=== PATIENT | female | born 1950 | race Caucasian/White ===

== ENCOUNTER → 2018-01-08 09:43 | Outpatient (CLI) | payer MEDICARE, OTHER, SELFPAY ==
--- NOTE | 2018-01-08 09:52 | BI_ITS ---
MAMMOGRAPHY - BILATERAL SCREENING REASON FOR EXAM: Female, 67 years old. Routine annual screening examination. PERTINENT HISTORY: Non-contributory. TECHNIQUE: Digital bilateral breast sesar (3D mammographic acquisition) in the CC and MLO projections. 2-D mediolateral oblique (MLO) and craniocaudad (CC) views of both breasts were obtained. CAD: Full Field Digital Mammography with Computer Added Detection was performed. COMPARISON: Comparison is made with prior study dated January 06, 2017 and August 31, 2015. FINDINGS: Breast Composition: There are scattered areas of fibroglandular density. There are no dominant masses or suspicious calcifications. No other significant abnormalities are identified. There has been no significant change since the prior study. BI/SCREENING MAMM (CAD), BILAT IMPRESSION: Stable bilateral screening mammogram. Yearly follow-up mammogram recommended. (A) ASSESSMENT CATEGORY: BIRADS Category 1: Negative. A letter regarding these results will be sent to the patient by the facility within 30 days. Approximately 10% of breast cancers are not detected by mammography. A normal mammogram should not delay biopsy of a clinically suspicious abnormality. [id number] Electronically Signed: Jeronimo Miller MD at 11:39 EDT Tel [phone], Service support ,
--- NOTE | 2018-01-08 10:09 | BD_ITS ---
STUDY: DUAL ENERGY X-RAY ABSORPTIOMETRY / DXA REASON FOR EXAM: Female, 67 years old. The patient is postmenopausal. Loss of height. TECHNIQUE: Bone Mineral Density (BMD) measurements of lumbar spine and bilateral hips were obtained. COMPARISON: Comparison is made with prior study dated May 14, 2011. FINDINGS: Lumbar Spine (L1-L4): g/cm2 (1.218) / T-score (0.3) / Z-score (1.9) Findings are suggestive of normal bone density with a low fracture risk. Increased thoracic kyphosis. Left Femur Total: g/cm2 (0.874) / T-score (-1.1) / Z-score (0.2) Left Femoral Neck: g/cm2 (0.796) / T-score (-1.7) / Z-score (-0.2) Right Femur Total: g/cm2 (0.893) / T-score (-0.9) / Z-score (0.3) Right Femoral Neck: g/cm2 (0.788) / T-score (-1.8) / Z-score (-0.3) The T-Scores on the most recent prior examination were: Lumbar Spine (L1-L4): There has been worsening of bone density since the previous examination. Left Femur Total: which represents a worsening of 11.1%. Right Femur Total: which represents a worsening of 10.3%. BD/Dexa Bone Density Study IMPRESSION: The patient is considered osteopenic as outlined below according to World Arnold Organization (WHO) criteria with a moderate fracture risk. There has been worsening of bone density since the previous examination. Reference Information: The T-score is the number of standard deviations above or below the standard which is normal for young adults at their peak bone mineral density. The World Health Organization (WHO) interprets the T-scores as follows: Above -1 Normal bone density Between -1 and -2.5 Osteopenia Equal to / or below -2.5 Osteoporosis As a practical clinical guideline, osteopenia may be graded as follows: Mild -1 through -1.5 Moderate -1.6 through -2.0 Severe -2.1 through -2.4 The Z-score is the number of standard deviations above or below age-matched controls. A Z-score of less than -1.5 would be considered abnormal. References: 1. NIH Osteoporosis and Related Bone Diseases http://www.osteo.org 2. International Society for Clinical Densitometry http://www.iscd.org 3. National Osteoporosis Foundation http://www.nof.org Electronically Signed: Jeronimo Miller MD at 15:10 EDT Tel [phone], Service support ,
== END ==
PROVIDERS: Family Provider Preventive Medicine Occupational Medicine; PCP Preventive Medicine Occupational Medicine; Visit Provider Preventive Medicine Occupational Medicine
DX: Z12.31 Encounter for screening mammogram for malignant neoplasm of breast (principal); Z78.0 Asymptomatic menopausal state
CPT/HCPCS: 77063; 77067; 77080

== ENCOUNTER 2018-01-23 23:45 | Emergency (ER) | payer MEDICARE, OTHER, SELFPAY ==
[2018-01-23 23:45] VITALS: BP 204/104; PULSE 84; RESP 15; TEMP 36.7; O2SAT 98; BMI 33.5
--- NOTE | 2018-01-24 | CT_ITS ---
HISTORY: NAUSEA AND VOMITING SINCE FRIDAY,ELEVATED BP TECHNIQUE: Helically acquired images were obtained of the abdomen and pelvis following oral and IV contrast. IV Contrast dosage and agent: 100 cc Isovue-300 contrast Oral contrast: Yes. COMPARISON: None. FINDINGS: GI tract: No bowel obstruction. The appendix is negative. Very little colonic stool, likely related to diarrhea. Numerous diverticula of the sigmoid colon and lower left colon. The distal left colon shows pericolonic edema with soft tissue stranding compatible with low-grade diverticulitis. Separately, the right, transverse, and the majority of the descending colon show a generalized pattern of submucosal edema accompanied by mild engorgement of the pericolonic vasa recti as seen with nonspecific colitis. Adequate flow within the celiac, SMA, and NAIDA and therefore not suggestive of ischemic colitis. Lower thorax: Long segment esophageal dilatation with possible lesion at the GE junction. No pleural effusion. Left atrial enlargement. Cholecystectomy with surgical clips within the gallbladder fossa. No biliary dilatation. The liver, spleen, and pancreas show no CT abnormality. Previous gastric surgery. Bilateral renal excretion of contrast without evidence of hydronephrosis or suspicious renal lesion. Multiple benign-appearing renal cysts bilaterally. Adrenal glands are not enlarged. Abdominal aorta is atherosclerotic and is normal in caliber. No ascites or retroperitoneal lymphadenopathy. CT/Abdomen/Pelvis WITH Contrast IMPRESSION: 1. Lower left colon low-grade diverticulitis. 2. Separately, the colon shows nonspecific long segment colitis and pseudomembranous colitis and enterocolitis would be included in differential. 3. Long segment esophageal dilatation with possible lesion at the GE junction. Upper endoscopy should be considered. 4. Atherosclerotic calcifications and additional chronic changes, as above. Individualized dose optimization techniques were used for this CT. at 0323 Reported and signed by: Sander Bustos MD Electronically Signed: Sander Bustos, at 3:21 EDT Tel , Service support ,
--- NOTE | 2018-01-24 | EKG12_ITS ---
Test Reason : NAUSEA VOMITING Blood Pressure : / mmHG Vent. Rate : 081 BPM Atrial Rate : 081 BPM P-R Int : 192 ms QRS Dur : 086 ms QT Int : 388 ms P-R-T Axes : 029 -14 029 degrees QTc Int : 450 ms Sinus rhythm with occasional Premature ventricular complexes Otherwise normal ECG Confirmed by EDUARDO SKINNER, BRENDA ([id number]), publishing editor KENDY ALONSO ([id number]) on 01/26/2018 3:20:13 PM Referred By: RAMON Confirmed By:BRENDA CLARK MD
--- NOTE | 2018-01-24 00:04 | ED.VISSUMM ---
- ER Visit Summary Date of Service: 01/24/18 Chief Complaint: Nausea, vomiting History of Present Illness: The patient is a 67 F presenting with nausea, vomiting. Patient states this started on Friday. She states she has had 4-5 episodes of vomiting per day. She denies diarrhea or constipation. Denies urinary complaints. She states she has abdominal pain only when vomiting. She has had a decreased appetite. She states she is unable to keep fluids down. She denies blood in her stool or emesis. Denies sick contacts. Denies possible bad food exposure. She has a history of stomach stapling surgery 32 years ago. Denies fever or other complaints. Physical Examination: Vitals are stable. Patient is afebrile. Alert no acute distress. HEENT exam dry mucous membranes Neck is supple. Lungs are clear and equal bilaterally. Heart is regular rate and rhythm. Abdomen is soft epigastric tenderness with no rebound or guarding Extremities are unremarkable. Skin is warm and dry. Remainder of exam is unremarkable. Emergency Department Course and Treatment: Patient given IV fluids, Zofran. Labs and CT abdomen are pending at this time. Patient was checked out to the oncoming physician. Disposition pending results Disposition: Pending Impression: Nausea and vomiting This note was generated with [employer] dictation software. It may contain incorrect words, spelling, and punctuation that were not noted in review of the chart prior to signing ED Disposition - Plan for ED Patient: Chief Complaint: Nausea/Vomiting Referrals: Bg Zavala DO [Primary Care Provider] -
[2018-01-24] MEDS: 0.9% Normal Saline 1,000 ML 1000 ML IV (00:34)
[2018-01-24] MEDS: Ondansetron 4 MG/2 ML Vial IV ×2 (00:34→02:03)
[2018-01-24 00:50] LABS: Absolute Lymphocyte Count 1.93 X10^3/ul (0.83-4.51); Absolute Neutrophil Count 7.3 X10^3/uL (2.0-7.7); Basophil# 0.03 X10^3/uL; Basophil% 0.3 % (0-1); Eosinophil# 0.09 X10^3/uL; Eosinophils% 0.9 % (0-5); Hemoglobin 9.4 g/dl (12.0-15.0); Lymphocyte # 1.93 X10^3/ul (4.0); Lymphocyte % 19.1 % (19-41); Mean Corp Hgb Conc 32.4 g/gl (32-36); Mean Corpuscular Hgb 26.6 pg (27.0-32.0); Mean Corpuscular Volume 82.2 fL (81-99); Mean Platelet Vol. 8.4 fl (6.2-12.0); Monocyte# 0.72 X10^3/uL; Monocyte% 7.1 % (0-10); Neutrophil # 7.28 X10^3/uL (2.7-7.7); Neutrophil % 72.3 % (47-70); POSITIVE COUNT NO; POSITIVE DIFFERENTIAL NO; POSITIVE MORPHOLOGY NO; Platelet Count 615 K/mm3 (150-450); RBC Distribution Width CV 12.9 % (11.6-14.6); RBC Distribution Width SD 37.1 fl (35.1-43.9); Red Blood Count 3.53 M/mm3 (4.2-5.4); White Blood Count 10.1 K/mm3 (4.4-11.0)
[2018-01-24 01:00] LABS: ALB/GLOB Ratio 0.8 RATIO (0.9-2.4); AST(SGOT) 11 U/L (15-37); Alanine Aminotransfer ALT/SGPT 16 U/L (13-56); Albumin, Serum 3.5 g/dL (3.2-5.0); Alkaline Phosphatase 69 U/L (45-117); Anion Gap 7 (5-15); BUN 18 mg/dL (7-18); Calcium,Total 9.5 mg/dL (8.5-10.1); Chloride 107 mmol/L (98-107); Creatinine, Serum 1.38 mg/dL (0.55-1.02); EST Glomerular Filtration Rate 41 mL/min (>60); Est Glom Filt Rate - Afr Amer 49 mL/min (>60); Globulin 4.4 g/dL (2.2-4.2); Glucose 135 mg/dL (74-106); Lipase 260 U/L (73-393); Potassium 3.8 mmol/L (3.5-5.1); Protein, Total 7.9 g/dL (6.4-8.2); Sodium Level 139 mmol/L (136-145)
[2018-01-24 01:45] VITALS: BP 222/87; PULSE 85; RESP 15; O2SAT 95
[2018-01-24] MEDS: Acetaminophen 500 MG Tablet 1000 MG PO (02:48)
[2018-01-24 02:49] LABS: Bacteria 0 SEEN /hpf (None Seen); Color, Urine Yellow (Yellow); Glucose, Dipstick Normal (Normal); Ketone-Dipstick Negative (Negative); Leukocyte Esterase-Dipstick 25 /ul (Negative); Mucous, Urine 0 SEEN /hpf (<or=2+); Nitrite-Dipstick Negative (Negative); Occult Blood-Urine Negative /ul (Negative); Protein-Dipstick 30 mg/dl (Negative); Red Blood Cells-Urine 0 SEEN /hpf (0-5); Squamous Epithelial Cells - UA 0 SEEN /hpf (5-10); Urine Bilirubin Dipstick Negative (Negative); Urine Clarity Clear (Clear); Urine Urobilinogen Normal (Normal)
[2018-01-24 02:50] VITALS: BP 186/70; PULSE 83; RESP 15; O2SAT 96
[2018-01-24 02:56] LABS: White Blood Cells 0-5 SEEN /hpf (0-5)
[2018-01-24 03:47] VITALS: BP 182/59; PULSE 87; RESP 15; O2SAT 95
--- NOTE | 2018-01-24 03:56 | ED.DEP ---
ED Disposition - Plan for ED Patient: Disposition: Home or Assisted Living Chief Complaint: Nausea/Vomiting Instructions: ED Diverticulitis Prescriptions: proMETHazine tablet [Phenergan] 25 mg PO Q6H PRN PRN #10 tablet PRN Reason: Nausea Ondansetron [Zofran Odt] 4 mg PO Q8H PRN PRN #10 tablet PRN Reason: Nausea Amox/Clavulanate Tablet [Augmentin Tablet] 875 mg PO Q12H #20 tablet Referrals: Bg Zavala DO [Primary Care Provider] - 5-7 Days
[2018-01-24] MEDS: proMETHazine 25 MG/ML Syringe 12.5 MG IV (04:01)
[2018-01-24] MEDS: Amox/Clavulanate 875 MG Tablet PO (04:01)
[2018-01-24 04:02] VITALS: BP 186/69; PULSE 78; RESP 15; O2SAT 98
[2018-01-24] MEDS: proMETHazine 25 MG Tablet PO (04:15)
[2018-01-24] MEDS: Ondansetron ODT 4 MG Tablet PO (04:16)
== END 2018-01-24 04:19 | disposition home or self-care (01) ==
PROVIDERS: Emergency Provider Emergency Medicine; Family Provider Preventive Medicine Occupational Medicine; PCP Preventive Medicine Occupational Medicine
DX: R11.2 Nausea with vomiting, unspecified (principal); R10.9 Unspecified abdominal pain; K57.92 Diverticulitis of intestine, part unspecified, without perforation or abscess without bleeding; K52.9 Noninfective gastroenteritis and colitis, unspecified; I49.3 Ventricular premature depolarization; E11.9 Type 2 diabetes mellitus without complications; I10 Essential (primary) hypertension; Z79.84 Long term (current) use of oral hypoglycemic drugs; Z79.899 Other long term (current) drug therapy; Z86.2 Personal history of diseases of the blood and blood-forming organs and certain disorders involving the immune mechanism; Z98.84 Bariatric surgery status
CPT/HCPCS: 74177; 80053; 81001; 83690; 84484; 85025; 93005; 96361; 96374; 96375; 96376; 99284; J7030; Q9967; A4216; J2405

== ENCOUNTER 2018-02-09 15:49 | Emergency (ER) | payer MEDICARE, OTHER, SELFPAY ==
[2018-02-09 15:51] VITALS: BP 141/77; PULSE 92; RESP 15; TEMP 36.3; O2SAT 98; BMI 34.2
--- NOTE | 2018-02-09 16:05 | RAD_ITS ---
STUDY: X-RAY - ABDOMEN/PELVIS REASON FOR EXAM: Female, 67 years old. Constipation for 3 days. History of diverticulitis. TECHNIQUE: KUB COMPARISON: CT abdomen and pelvis 01/24/2018 FINDINGS: Scattered gas in the small and large bowel, nondilated. Moderate stool burden of large bowel. No evidence of constipation. No evidence of free air. Grossly normal size and position of the solid organs of the abdomen. Cholecystectomy. Postsurgical changes of the stomach. Postsurgical changes adjacent to the spleen. Lung bases grossly clear in limited evaluation. Minimal low lumbar spondylosis. Minimal degenerative changes of the hip joints. Next line slight scoliosis. RAD/Abdomen Single View IMPRESSION: Unremarkable bowel pattern. No acute intra-abdominal process is evident. Electronically Signed: Daren Ba, at 16:26 EST Tel , Service support ,
--- NOTE | 2018-02-09 16:39 | ED.VISSUMM ---
- ER Visit Summary Date of Service: 02/09/18 Chief Complaint: Constipation History of Present Illness: The patient is a 67 F who was recently treated for diverticulitis. She states she is done with antibiotics. She resumed her usual stool softeners and last night and today took an extra dose. She states she has not had a good bowel movement for 3 days. She feels a lot of lower abdominal pressure. She states that she is having some leakage of watery diarrhea. No fevers. Physical Examination: Afebrile vital signs stable Gen: Well-nourished well-developed Head: Normocephalic atraumatic Eyes: Perrl EOMI ENT: TMs clear no rhinorrhea moist mucous membranes Neck: Supple no lymphadenopathy no JVD nontender CVS: Regular rate rhythm no murmurs normal S1-S2 Respiratory: No distress clear to auscultation bilaterally chest nontender Abdomen: Soft nontender nondistended normal bowel sounds no masses Rectal: Soft stool inflamed hemorrhoidal tissue Back: Nontender Extremity: Nontender no edema Skin: Normal color no rash Neuro: alert orientated ?3 CN II-XII intact normal strength sensation reflexes gait cerebellar Psych: Normal affect normal mood Test Results: Large amount of stool in the rectosigmoid region is seen on abdominal x-ray. Emergency Department Course and Treatment: Patient given soapsuds enema. This resulted in large stool. Patient feels better. She will be discharged home. Impression: 1. Constipation 2. Fecal impaction resolved This note was generated with [employer] dictation software. It may contain incorrect words, spelling, and punctuation that were not noted in review of the chart prior to signing ED Disposition - Plan for ED Patient: Disposition: Home or Assisted Living Chief Complaint: Constipation Instructions: ED Constipation, ED Impaction Fecal Treated Referrals: Bg Zavala DO [Primary Care Provider] - As Needed
[2018-02-09 17:59] VITALS: BP 153/70; PULSE 77; RESP 18; O2SAT 100
== END 2018-02-09 18:02 | disposition home or self-care (01) ==
PROVIDERS: Emergency Provider Emergency Medicine; Family Provider Preventive Medicine Occupational Medicine; PCP Preventive Medicine Occupational Medicine
DX: K59.00 Constipation, unspecified (principal); R19.7 Diarrhea, unspecified; E11.9 Type 2 diabetes mellitus without complications; I10 Essential (primary) hypertension; Z79.84 Long term (current) use of oral hypoglycemic drugs; Z79.899 Other long term (current) drug therapy; Z87.19 Personal history of other diseases of the digestive system
CPT/HCPCS: 74018; 99284

== ENCOUNTER 2018-10-20 15:14 | Emergency (ER) | payer MEDICARE, OTHER, SELFPAY ==
[2018-10-20 15:15] VITALS: BP 162/96; PULSE 100; RESP 17; TEMP 37.3; O2SAT 100; BMI 34.9
--- NOTE | 2018-10-20 15:26 | ED.VIS.GEN ---
History of Present Illness Chief Complaint: Abd Pain Informant: Patient Onset: Days - October 18 Context: Sudden Onset Timing: Intermittent Quality: Nausea, vomiting and diarrhea Location: Also upper abdominal pain Current Severity: Mild Maximum Severity: Moderate Worsened by: Vomiting and diarrhea Relieved by: Nothing, patient took Phenergan with no improvement Associated Symptoms: Orthostatic symptoms, thirst and dry mouth Narrative: Patient is a 68-year-old woman with type 2 diabetes and hypertension who presents with upper abdominal pain with nausea, vomiting diarrhea. She reports vomiting 3 times on Friday and Friday. She is only vomited once today. She states she is had numerous loose watery stools since onset Friday. She denies blood or mucus. She denies history of inflammatory bowel disorder. She does have history of diverticulosis/diverticulitis. She denies dysuria, frequency, urgency or hematuria. She does report chills without fever. She has taken her temperature at home when she had chills and her temperature was not elevated. She does not have nasal drainage. She denies headache. She denies ocular, visual or auditory symptoms. She denies ear pain. She denies cough, shortness of breath or difficulty breathing. Prior similar symptoms: No Recent Illness/Hospitalization: No - Past Medical History (1) History of type 2 diabetes mellitus Status: Acute (2) History of hypertension Status: Acute Past Medical History - Allergies and Home Meds Allergies/Adverse Reactions: Allergies nitrofurantoin macrocrystalline [From Macrodantin] Allergy (Verified 10/20/18 15:14) Unknown Primary Care Physician: Bg Zavala DO [Primary Care Provider] - Surgical History: cholecystectomy, - - section Lives: Alone Smoking Status: Never smoker Alcohol: None Drugs: None Review of Systems General: Reports: Chills. Denies: Fever, Malaise, Subjective, Sweats, Weight loss, - Eyes: Denies: Visual changes - bilaterally, Blurred Vision - bilaterally ENT: Reports: - - Positive postnasal drainage. Denies: Bilateral ear pain, Rhinorrhea, Sore throat Cardiovascular: Denies: Chest pain, Palpitations Respiratory: Denies: Dyspnea, Cough, Dyspnea on exertion Gastrointestinal: Reports: Abdominal pain, Nausea, Vomiting, Diarrhea. Denies: Constipation, Melena, Hematochezia Genitourinary: Denies: Dysuria, Hematuria, Frequency Musculoskeletal: Denies: Myalgias, Arthralgias, Neck pain, Back pain, Swelling, Extremity Pain, -, - Skin: Denies: Rash, Wounds Neurological: Reports: Weakness. Denies: Headache, Numbness Hematologic: Denies: Easy bruising, Easy bleeding Allergy: Denies: Uticaria, Swelling of the mouth Physical Exam Vital Signs/Narrative: Vital Signs Temp Pulse Resp BP Pulse Ox 10/20/18 15:15 99.1 F 100 17 162/96 H 100 General: Well nourished, Well developed, No Acute Distress Head: Normocephalic, Atraumatic Eyes: Perrl, EOMI. Negative for: Pale conjunctiva, Scleral icterus ENT: No rhinorrhea, TM's clear - Evidence of scarring consistent with multiple ear infections as child, Dry mucous membranes. Negative for: Nasal congestion, Sinus tenderness Neck: Supple, Nontender, No lymphadenopathy, No JVD, - Cardiovascular: Regular rate, Regular rhythm, No murmurs Respiratory: No distress, CTA bilaterally, Chest nontender Abdomen: Soft, Nontender, Nondistended, Normal bowel sounds, No masses Back: Nontender, Normal Inspection Extremities: Nontender, No edema Skin: Normal color, No rash. Negative for: Cyanosis, Diaphoresis, Jaundice, No Trauma Neurological: Alert, Oriented x3, Cranial nerves II-XII grossly intact, Normal Strength, Normal Sensation, Normal Gait Psychological: Normal affect, Normal Mood Diagnostic/Tx/Re-eval Laboratory Results 10/20/18 15:40 Sodium 141 Potassium 3.9 Chloride 108 H Carbon Dioxide 24.0 Anion Gap 9 BUN 24 H Creatinine 2.04 H Estim Creat Clear Calc 19.22 Est GFR (MDRD) Af Amer 31 L Est GFR (MDRD) Non-Af 26 L BUN/Creatinine Ratio 11.8 Glucose 102 Calcium 9.8 Creatinine January 2018 was 1.38. - Medical Decision Making Clinically patient is dehydrated. Will treat nausea and vomiting with Zofran. Will then order Bentyl and Imodium for her pain and diarrhea. Since she has history of diabetes and hypertension we will obtain basic medical panel to assess renal function, electrolytes specifically potassium. Suspect this is viral. I was informed at 1630 the patient would not take the Bentyl Imodium ordered because she still feels nauseated even though she has not vomited 4 hours. 5 mg of Reglan was ordered. She did receive Tylenol for headache. I was informed by nurse that she is having a burning sensation. She was treated with IV Pepcid. She was reassessed at 1900. She states she is now feeling better. She sitting up smiling talking with family members. She was informed that I did speak with Dr. Sharma on-call for Dr. Murcia. She is to call office to be seen on Friday for reevaluation and blood work. ED Disposition - Plan for ED Patient: Disposition: Home or Assisted Living Diagnosis: Abdominal pain, vomiting, and diarrhea, Acute kidney injury superimposed on chronic kidney disease Instructions: VOMITING AND DIARRHEA, Nonspecific (Adult) Prescriptions: Dicyclomine HCl [Bentyl] 20 mg PO TIDAC #10 cap Transmission Status: Pending to [facility] Metoclopramide [Reglan] 10 mg PO 4X/DAY PRN #10 tab PRN Reason: Headache Transmission Status: Pending to [facility] Referrals: Bg Zavala DO [Primary Care Provider] - 10/23/18 Additional Instructions: Your prescription was electronically transmitted to [facility]. If you have vomiting more than once a day or if your diarrhea does not resolve with Imodium return to the emergency department. Otherwise, see Dr. Murcia on Friday for reevaluation and blood work
[2018-10-20] MEDS: 0.9% Normal Saline 1,000 ML 1000 ML IV (15:39)
[2018-10-20] MEDS: Ondansetron 4 MG/2 ML Vial IV (15:39)
[2018-10-20 16:21] LABS: Anion Gap 9 (5-15); BUN 24 mg/dL (7-18); BUN/Creat Ratio 11.8 RATIO (10-20); Calcium,Total 9.8 mg/dL (8.5-10.1); Chloride 108 mmol/L (98-107); Creatinine, Serum 2.04 mg/dL (0.55-1.02); EST Glomerular Filtration Rate 26 mL/min (>60); Est Glom Filt Rate - Afr Amer 31 mL/min (>60); Estimated Creatinine Clearance 19.22 ml/min; Glucose 102 mg/dL (74-106); Potassium 3.9 mmol/L (3.5-5.1); Sodium Level 141 mmol/L (136-145)
[2018-10-20] MEDS: Metoclopramide 10 MG/2 ML Vial 5 MG IV (16:47)
[2018-10-20] MEDS: Loperamide 2 MG Capsule 4 MG PO (17:09)
[2018-10-20] MEDS: Dicyclomine 10 MG Capsule 20 MG PO (17:09)
[2018-10-20 17:35] VITALS: BP 186/89; PULSE 87; RESP 16; O2SAT 97
[2018-10-20] MEDS: Acetaminophen 325 MG Tablet 650 MG PO (18:28)
[2018-10-20 19:04] VITALS: BP 177/82; PULSE 87; RESP 16; O2SAT 99
[2018-10-20 19:32] VITALS: BP 160/76; PULSE 86; RESP 18; O2SAT 98
== END 2018-10-20 19:32 | disposition home or self-care (01) ==
PROVIDERS: Emergency Provider Emergency Medicine; Family Provider Preventive Medicine Occupational Medicine; PCP Preventive Medicine Occupational Medicine
DX: R10.10 Upper abdominal pain, unspecified (principal); R19.7 Diarrhea, unspecified; R11.2 Nausea with vomiting, unspecified; E86.0 Dehydration; N17.9 Acute kidney failure, unspecified; I12.9 Hypertensive chronic kidney disease with stage 1 through stage 4 chronic kidney disease, or unspecified chronic kidney disease; N18.9 Chronic kidney disease, unspecified; E11.9 Type 2 diabetes mellitus without complications; Z79.84 Long term (current) use of oral hypoglycemic drugs; Z79.899 Other long term (current) drug therapy; Z87.19 Personal history of other diseases of the digestive system; Z90.49 Acquired absence of other specified parts of digestive tract
CPT/HCPCS: 80048; 96361; 96374; 96375; 99284; J7030; J2405; J3490

== ENCOUNTER → 2019-01-26 15:20 | Outpatient (CLI) | payer MEDICARE, OTHER, SELFPAY ==
--- NOTE | 2019-01-26 15:24 | US_ITS ---
STUDY: RENAL ULTRASOUND - COMPLETE REASON FOR EXAM: Female, 68 years old. Chronic renal disease TECHNIQUE: Ultrasound evaluation of the kidneys was performed with real-time and static schwartz-scale imaging. COMPARISON: None. FINDINGS: RIGHT KIDNEY: Normal location of the right kidney, which is normal in size. The right kidney measures 10.2 x 5.3 x 4.7 cm. There is a thin cortex of the right kidney. The renal cortex measures 0.8 cm. There is no right renal mass or cyst. There are no right renal calculi. There is no right hydronephrosis. DISTAL RIGHT URETER: There is non-visualization of the distal right ureter. There is no demonstrated right ureterovesical junction calculus. There is a visualized right ureteral jet. LEFT KIDNEY: Normal location of the left kidney, which is normal in size. The left kidney measures 9.7 x 4.9 x 4.6 cm. There is a thin cortex of the left kidney. The renal cortex measures 0.7 cm. There are multiple cysts the largest measuring 2.2 x 2.6 x 1.9 cm.. There are no left renal calculi. There is no left hydronephrosis. DISTAL LEFT URETER: There is non-visualization of the distal left ureter. There is no demonstrated left ureterovesical junction calculus. There is a visualized left ureteral jet. Diffusely increased cortical echoes consistent with nonspecific renal parenchymal disease BLADDER: The distended urinary bladder has a volume of 223.5 ml.. There is a normal wall thickness of the distended urinary bladder. There is no demonstrated mass within the urinary bladder. There are no demonstrated bladder calculi. US/Kidney and Bladder IMPRESSION: Findings consistent with nonspecific chronic renal parenchymal disease. Small cysts within the left kidney. No evidence for hydronephrosis Electronically Signed: Polo Do MD at 17:01 EST , Service support ,
[2019-01-26 18:10] LABS: Albumin, Serum 3.9 g/dL (3.2-5.0); BUN 33 mg/dL (7-18); BUN/Creat Ratio 17.6 RATIO (10-20); Calcium,Total 9.7 mg/dL (8.5-10.1); Chloride 102 mmol/L (98-107); Creatinine, Serum 1.88 mg/dL (0.55-1.02); EST Glomerular Filtration Rate 28 mL/min (>60); Est Glom Filt Rate - Afr Amer 34 mL/min (>60); Glucose 90 mg/dL (74-106); Phosphorus 4.6 mg/dL (2.5-4.9); Potassium 4.5 mmol/L (3.5-5.1); Sodium Level 135 mmol/L (136-145)
== END ==
PROVIDERS: Family Provider Preventive Medicine Occupational Medicine; PCP Preventive Medicine Occupational Medicine; Referring Provider Internal Medicine Nephrology; Visit Provider Internal Medicine Nephrology
DX: N17.9 Acute kidney failure, unspecified (principal); N18.3 Chronic kidney disease, stage 3 (moderate)
CPT/HCPCS: 36415; 76770; 80069

== ENCOUNTER → 2019-03-05 10:07 | Outpatient (CLI) | payer MEDICARE, OTHER, SELFPAY ==
[2019-03-05 10:39] LABS: Hematocrit 28.5 % (37-47); Hemoglobin 9.1 g/dL (12.0-15.0); Mean Corp Hgb Conc 31.9 g/dL (32-36); Mean Corpuscular Hgb 26.1 pg (27.0-32.0); Mean Corpuscular Volume 81.9 fL (81-99); Mean Platelet Vol. 8.9 fl (6.2-12.0); Platelet Count 401 K/mm3 (150-450); RBC Distribution Width CV 13.5 % (11.6-14.6); RBC Distribution Width SD 39.8 fl (35.1-43.9); Red Blood Count 3.48 M/mm3 (4.2-5.4); White Blood Count 8.7 K/mm3 (4.4-11.0)
[2019-03-05 11:00] LABS: Albumin, Serum 3.4 g/dL (3.2-5.0); BUN 24 mg/dL (7-18); BUN/Creat Ratio 13.6 RATIO (10-20); Calcium,Total 8.9 mg/dL (8.5-10.1); Chloride 104 mmol/L (98-107); Creatinine, Serum 1.76 mg/dL (0.55-1.02); EST Glomerular Filtration Rate 31 mL/min (>60); Est Glom Filt Rate - Afr Amer 37 mL/min (>60); Ferritin 8 ng/mL (8-252); Glucose 92 mg/dL (74-106); Iron 37 ug/dL (50-170); Iron Binding Capacity,Total 352 ug/dL (250-450); PERCENT IRON SATURATION 10.5 % (15.0-55.0); Phosphorus 3.4 mg/dL (2.5-4.9); Potassium 4.4 mmol/L (3.5-5.1); Sodium Level 134 mmol/L (136-145)
[2019-03-05 11:04] LABS: Vitamin D,25 Hydroxy 21.8 ng/mL (29.95-100.01)
[2019-03-05 11:05] LABS: PTHIN 159.9 pg/mL (18.4-80.1)
== END ==
LOC: LAB.FUTURE 10:10 → LAB 10:14
PROVIDERS: Family Provider Preventive Medicine Occupational Medicine; PCP Preventive Medicine Occupational Medicine; Referring Provider Internal Medicine Nephrology; Visit Provider Internal Medicine Nephrology
DX: N18.3 Chronic kidney disease, stage 3 (moderate) (principal); D64.9 Anemia, unspecified
CPT/HCPCS: 36415; 80069; 82306; 82728; 83540; 83550; 83970; 85027

== ENCOUNTER 2019-03-23 01:04 | Emergency (ER) | payer MEDICARE, OTHER, SELFPAY ==
[2019-03-23 01:04] VITALS: BP 214/111; PULSE 76; RESP 20; RESP 24; TEMP 36.6; O2SAT 98; O2SAT 99; BMI 37.2
[2019-03-23 01:30] LABS: Absolute Lymphocyte Count 2.89 X10^3/uL (0.83-4.51); Absolute Neutrophil Count 6.3 X10^3/uL (2.0-7.7); Basophil# 0.04 X10^3/uL; Basophil% 0.4 % (0-1); Eosinophil# 0.16 X10^3/uL; Eosinophils% 1.5 % (0-5); Hematocrit 29.4 % (37-47); Hemoglobin 9.3 g/dL (12.0-15.0); Lymphocyte # 2.89 X10^3/ul (4.0); Lymphocyte % 27.9 % (19-41); Mean Corp Hgb Conc 31.6 g/dL (32-36); Mean Corpuscular Hgb 25.6 pg (27.0-32.0); Mean Platelet Vol. 8.7 fl (6.2-12.0); Monocyte# 0.89 X10^3/uL; Monocyte% 8.6 % (0-10); NRBC Flagged by Analyzer 0 % (0-5); Platelet Count 403 K/mm3 (150-450); RBC Distribution Width CV 13.2 % (11.6-14.6); RBC Distribution Width SD 38.8 fl (35.1-43.9); Red Blood Count 3.63 M/mm3 (4.2-5.4); White Blood Count 10.3 K/mm3 (4.4-11.0)
--- NOTE | 2019-03-23 01:34 | CT_ITS ---
We are attempting to reach an attending provider to discuss findings. An addendum with communication details will be sent when the communication is complete. HISTORY:LEFT ABD PAIN WITH CONSTIPATION, NAUSEA, HX HTN, GB, STOMACH STAPLED LEFT ABD PAIN WITH CONSTIPATION, NAUSEA, HX HTN, GB, STOMACH STAPLED EXAMINATION: CT Abdomen And Pelvis W/O Contrast Injection TECHNIQUE: Helically acquired images were obtained of the abdomen and pelvis without oral or IV contrast as per renal stone protocol. A radiation dose optimization technique was used for this scan. IV Contrast dosage and agent: None. Oral contrast: None. COMPARISON: January 24, 2018 FINDINGS: LOWER CHEST: Cardiomegaly The lungs are clear LIVER: Homogeneous. No focal mass. GALLBLADDER AND BILIARY TREE: Cholecystectomy No intra- or extrahepatic biliary ductal dilation. PANCREAS: No focal cystic or solid mass. SPLEEN: Normal size without focal cystic or solid mass. ADRENAL GLANDS: No nodules. KIDNEYS AND URETERS: The right kidney is unremarkable There is fat stranding surrounding the left kidney and the left kidney is mildly prominent. There is a heterogenous appearance with surrounding fat stranding and minimal luz marina-renal fluid. There is a focal exophytic lesion seen at the superior pole of the slightly increased in density. This measures 1.25 cm. In addition at the mid and lower pole there is a masslike appearance and measures 8 cm in length. Increased densities suggest intrarenal hemorrhage. Nephrology consultation is recommended for further evaluation. PERITONEUM: No ascites or free air. No other fluid collection. BOWEL: Postsurgical changes are seen at the stomach similar to prior study Small bowel is unremarkable Diverticulosis without evidence of diverticulitis Multiple radiopaque densities seen within the cecum most likely pills The appendix is unremarkable LYMPH NODES: No enlarged mesenteric or retroperitoneal lymph nodes. VESSELS: Aorta is non-dilated. URINARY BLADDER: Unremarkable. REPRODUCTIVE ORGANS: The uterus is anteverted. ABDOMINAL WALL: Small fat-containing umbilical hernia BONES: No acute osseous abnormality CT/Abdomen/Pelvis without Cont IMPRESSION: Heterogenous appearance to the left kidney was suspected intrarenal hemorrhage. I cannot exclude an underlying mass. There is surrounding fat stranding. There is calcification at the origin of the renal artery on the left that was present on the prior study. The ureter is not distended. The right kidney is unremarkable. Nephrology consultation is recommended Diverticulosis without evidence of diverticulitis Cardiomegaly Cholecystectomy Small fat-containing umbilical hernia Individualized dose optimization techniques were used for this CT. at 0258 Reported and signed by: Cayla Waldrop DO Electronically Signed: Cayla Waldrop MD at 2:57 EST Tel , Service support ,
--- NOTE | 2019-03-23 01:35 | ED.DCSUM_ITS ---
History of Present Illness Chief Complaint: Abd Pain Informant: Patient Narrative: Stated she woke from sleep with left lower flank pain. Associated with some nausea. No blood in her urine. No history of kidney stone. She does have a history of constipation of the last 2 days. She has been using stool softeners and a glycerin suppository with minimal relief. However she was not having pain like this prior to bed. She is never had pain like this in the past. She does have a history of remote diverticulitis. She denies any diarrhea fevers or chills. Current severity is moderate. Difficult to get comfortable. No home treatment for the pain. History of cholecystectomy and in the past. - Past Medical History (1) History of hypertension Status: Acute (2) History of type 2 diabetes mellitus Status: Acute Past Medical History - Allergies and Home Meds Allergies/Adverse Reactions: Allergies nitrofurantoin macrocrystalline [From Macrodantin] Allergy (Verified 10/20/18 15:14) Unknown Prior records reviewed: Yes Past Medical History: - - Homeless, diverticulitis, hypertension Surgical History: cholecystectomy, - - section Lives: With Family Smoking Status: Never smoker Alcohol: None Drugs: None Review of Systems General: Denies: Chills, Fever, Sweats Eyes: Denies: Visual changes - bilaterally, Diplopia ENT: Denies: Rhinorrhea, Sore throat Cardiovascular: Denies: Chest pain, Palpitations Respiratory: Denies: Dyspnea, Cough, Dyspnea on exertion Gastrointestinal: Reports: Abdominal pain, Nausea. Denies: Vomiting, Diarrhea, Melena, Hematochezia Genitourinary: Denies: Dysuria, Hematuria, Frequency Musculoskeletal: Reports: Back pain. Denies: Extremity Pain Skin: Denies: Rash, Wounds Neurological: Denies: Headache, Weakness, Numbness Physical Exam Vital Signs/Narrative: Vital Signs Temp Pulse Resp BP Pulse Ox 03/23/19 01:04 97.9 F 76 24 H 214/111 H 99 General: Well nourished, Well developed, No Acute Distress Head: Normocephalic, Atraumatic Eyes: Perrl, EOMI ENT: Moist mucous membranes, No rhinorrhea Neck: Supple, Nontender Cardiovascular: Regular rate, Regular rhythm, No murmurs Respiratory: No distress, CTA bilaterally, Chest nontender Abdomen: Soft, Nontender, Nondistended, Normal bowel sounds Back: Nontender, Normal Inspection Extremities: Nontender, No edema Skin: Normal color, No rash Neurological: Alert, Oriented x3, Cranial nerves II-XII grossly intact, Normal Strength, Normal Sensation Psychological: Normal affect, Normal Mood Diagnostic/Tx/Re-eval - Medical Decision Making Given IV fluids Zofran and morphine. Lab work and CT abdomen pelvis obtained. Lab work shows a creatinine of 1.9 which is chronic for the patient. Hemoglobin is mildly low which is chronic for the patient as well. She has chronic anemia. CT shows a suspected left renal hemorrhage. Discussed with the radiologist. Coagulation studies pending. Blood pressure on repeat is 180 systolic. Given labetalol to lower her blood pressure further. Patient felt much better after treatment. She will be transferred to a larger facility for urology evaluation as the patient will need this. We do not have urology coverage at this time. Patient was discussed with urology at [facility]. Medicine accepted the patient with a urology consult. ED Disposition - Plan for ED Patient: Disposition: [facility] - Main Diagnosis: Renal hemorrhage, left, Hypertension
[2019-03-23] MEDS: Ondansetron 4 MG/2 ML Vial IV (01:47)
[2019-03-23 01:48] LABS: Anion Gap 9 (5-15); BUN 27 mg/dL (7-18); Calcium,Total 9.8 mg/dL (8.5-10.1); Chloride 106 mmol/L (98-107); Creatinine, Serum 1.93 mg/dL (0.55-1.02); EST Glomerular Filtration Rate 28 mL/min (>60); Est Glom Filt Rate - Afr Amer 33 mL/min (>60); Estimated Creatinine Clearance 20.32 ml/min; Glucose 134 mg/dL (74-106); Potassium 3.7 mmol/L (3.5-5.1); Sodium Level 140 mmol/L (136-145)
[2019-03-23] MEDS: Morphine 4 MG/ML Syringe IV ×2 (01:49→03:38)
[2019-03-23] MEDS: 0.9% Normal Saline 1,000 ML 125 ML IV (01:52)
[2019-03-23 02:43] LABS: Bacteria 0 SEEN /hpf (None Seen); Mucous, Urine 0 SEEN /hpf (<or=2+); Red Blood Cells-Urine 0 SEEN /hpf (0-5); White Blood Cells 0 SEEN /hpf (0-5)
[2019-03-23 02:47] LABS: Color, Urine Yellow (Yellow); Glucose, Dipstick Normal (Normal); Ketone-Dipstick Negative (Negative); Leukocyte Esterase-Dipstick Negative /ul (Negative); Nitrite-Dipstick Negative (Negative); Occult Blood-Urine Negative /ul (Negative); Protein-Dipstick 100 mg/dl (Negative); Specific Gravity, Urine 1.015 (1.002-1.030); Urine Bilirubin Dipstick Negative (Negative); Urine Clarity Clear (Clear); Urine Urobilinogen Normal (Normal); Urine pH 6.5 (5.0 - 8.0)
[2019-03-23 02:49] LABS: Squamous Epithelial Cells - UA 0-5 SEEN /hpf (5-10)
[2019-03-23 03:28] LABS: International Normalized Ratio 1.1; Prothrombin Time (Protime)PT. 14.1 SECONDS (11.7-14.9)
[2019-03-23 03:29] LABS: Partial Thromboplast Time 26.2 Seconds (24.1-36.2)
[2019-03-23 03:42] VITALS: BP 200/87; PULSE 81; RESP 15; O2SAT 93
[2019-03-23 03:47] VITALS: BP 155/72; PULSE 76; RESP 15; O2SAT 92
[2019-03-23 04:49] VITALS: BP 166/75; PULSE 73; RESP 15; O2SAT 92
[2019-03-23 06:35] VITALS: BP 180/72; PULSE 74; RESP 15; TEMP 36.8; O2SAT 94
== END 2019-03-23 06:35 | disposition short-term general hospital (02) ==
PROVIDERS: Emergency Provider Emergency Medicine; Family Provider Preventive Medicine Occupational Medicine; PCP Preventive Medicine Occupational Medicine
DX: N28.89 Other specified disorders of kidney and ureter (principal); D64.9 Anemia, unspecified; I10 Essential (primary) hypertension; R10.32 Left lower quadrant pain; K59.00 Constipation, unspecified; E11.9 Type 2 diabetes mellitus without complications; Z79.84 Long term (current) use of oral hypoglycemic drugs; Z79.899 Other long term (current) drug therapy; Z87.19 Personal history of other diseases of the digestive system; Z90.49 Acquired absence of other specified parts of digestive tract
CPT/HCPCS: 74176; 80048; 81001; 85025; 85610; 85730; 96361; 96374; 96375; 96376; 99285; J7030; A4216; J2405

== ENCOUNTER → 2019-07-26 10:48 | Outpatient (CLI) | payer MEDICARE, OTHER, SELFPAY ==
[2019-07-26 11:59] LABS: PTHIN 205.1 pg/mL (18.4-80.1)
[2019-07-26 12:01] LABS: Albumin, Serum 3.3 g/dL (3.2-5.0); BUN 33 mg/dL (7-18); BUN/Creat Ratio 17.8 RATIO (10-20); Chloride 103 mmol/L (98-107); Creatinine, Serum 1.85 mg/dL (0.55-1.02); EST Glomerular Filtration Rate 29 mL/min (>60); Est Glom Filt Rate - Afr Amer 35 mL/min (>60); Glucose 114 mg/dL (74-106); Phosphorus 3.5 mg/dL (2.5-4.9); Potassium 4.4 mmol/L (3.5-5.1); Sodium Level 134 mmol/L (136-145)
[2019-07-26 12:05] LABS: Vitamin D,25 Hydroxy 34.9 ng/mL
== END ==
PROVIDERS: PCP Preventive Medicine Occupational Medicine; Referring Provider Internal Medicine Nephrology; Visit Provider Internal Medicine Nephrology
DX: N18.3 Chronic kidney disease, stage 3 (moderate) (principal); E55.9 Vitamin D deficiency, unspecified
CPT/HCPCS: 36415; 80069; 82306; 83970

== ENCOUNTER → 2019-08-10 12:46 | Outpatient (CLI) | payer MEDICARE, OTHER, SELFPAY ==
--- NOTE | 2019-08-10 12:49 | BI_ITS ---
MAMMOGRAPHY - BILATERAL SCREENING REASON FOR EXAM: Female, 68 years old. Routine annual screening examination. PERTINENT HISTORY: Non-contributory. TECHNIQUE: Digital bilateral breast cecil (3D mammographic acquisition) in the CC and MLO projections. 2-D mediolateral oblique (MLO) and craniocaudad (CC) views of both breasts were obtained. CAD: Full Field Digital Mammography with Computer Added Detection was performed. COMPARISON: Comparison is made with prior examination dated January 08, 2018 and January 06, 2017. FINDINGS: Breast Composition: There are scattered areas of fibroglandular density. There are no dominant masses or suspicious calcifications. Stable benign-appearing left axillary lymph nodes. No other significant abnormalities are identified. There has been no significant change since the prior study. BI/SCREEN MAMM (CAD) W/CECIL BILAT IMPRESSION: Stable bilateral screening mammogram. Yearly follow-up mammogram recommended. (A) ASSESSMENT CATEGORY: BIRADS Category 2: Benign. A letter regarding these results will be sent to the patient by the facility within 30 days. Approximately 10% of breast cancers are not detected by mammography. A normal mammogram should not delay biopsy of a clinically suspicious abnormality. [id number] Electronically Signed: Jeronimo Miller, at 9:17 EDT , Service support ,
== END ==
PROVIDERS: PCP Preventive Medicine Occupational Medicine; Referring Provider Preventive Medicine Occupational Medicine; Visit Provider Preventive Medicine Occupational Medicine
DX: Z12.31 Encounter for screening mammogram for malignant neoplasm of breast (principal)
CPT/HCPCS: 77063; 77067

== ENCOUNTER → 2019-09-06 11:49 | Outpatient (CLI) | payer MEDICARE, OTHER, SELFPAY ==
[2019-09-06 12:59] LABS: Albumin, Serum 3.5 g/dL (3.2-5.0); BUN 27 mg/dL (7-18); BUN/Creat Ratio 15.5 RATIO (10-20); Calcium,Total 9.5 mg/dL (8.5-10.1); Chloride 104 mmol/L (98-107); Creatinine, Serum 1.74 mg/dL (0.55-1.02); EST Glomerular Filtration Rate 31 mL/min (>60); Est Glom Filt Rate - Afr Amer 37 mL/min (>60); Glucose 139 mg/dL (74-106); Phosphorus 3.5 mg/dL (2.5-4.9); Potassium 4.4 mmol/L (3.5-5.1); Sodium Level 134 mmol/L (136-145)
== END ==
PROVIDERS: PCP Preventive Medicine Occupational Medicine; Referring Provider Internal Medicine Nephrology; Visit Provider Internal Medicine Nephrology
DX: N18.3 Chronic kidney disease, stage 3 (moderate) (principal)
CPT/HCPCS: 36415; 80069

== ENCOUNTER → 2019-11-08 09:13 | Outpatient (CLI) | payer MEDICARE, OTHER, SELFPAY ==
[2019-11-08 10:11] LABS: PTHIN 197.2 pg/mL (18.4-80.1)
[2019-11-08 10:29] LABS: Albumin, Serum 3.6 g/dL (3.2-5.0); BUN 36 mg/dL (7-18); BUN/Creat Ratio 18.7 RATIO (10-20); Calcium,Total 9.1 mg/dL (8.5-10.1); Chloride 106 mmol/L (98-107); Cholesterol 219 mg/dL (200); Creatinine, Serum 1.93 mg/dL (0.55-1.02); EST Glomerular Filtration Rate 27 mL/min (>60); Est Glom Filt Rate - Afr Amer 33 mL/min (>60); Glucose 113 mg/dL (74-106); High Density Lipoprotein 57 mg/dL; Phosphorus 3.1 mg/dL (2.5-4.9); Sodium Level 136 mmol/L (136-145); Triglycerides 108 mg/dL; Very Low Density Lipoprotein 22 mg/dL (5-40)
== END ==
PROVIDERS: PCP Preventive Medicine Occupational Medicine; Referring Provider Internal Medicine Nephrology; Visit Provider Internal Medicine Nephrology
DX: E11.22 Type 2 diabetes mellitus with diabetic chronic kidney disease (principal); N18.3 Chronic kidney disease, stage 3 (moderate); E78.00 Pure hypercholesterolemia, unspecified
CPT/HCPCS: 36415; 80061; 80069; 83970

== ENCOUNTER → 2021-09-21 | Outpatient (CLI) | payer MEDICARE, OTHER, SELFPAY ==
--- NOTE | 2021-09-21 12:30 | BI_ITS ---
MAMMOGRAPHY - BILATERAL SCREENING REASON FOR EXAM: Female, 70 years old. Routine annual screening examination. PERTINENT HISTORY: Non-contributory. TECHNIQUE: Digital bilateral breast cecil (3D mammographic acquisition) in the CC and MLO projections. 2-D mediolateral oblique (MLO) and craniocaudad (CC) views of both breasts were obtained. CAD: Full Field Digital Mammography with Computer Added Detection was performed. COMPARISON: Comparison is made with prior study dated 08/10/2019 and 01/08/2018. FINDINGS: Breast Composition: There are scattered areas of fibroglandular density. There are no dominant masses or suspicious calcifications. No other significant abnormalities are identified. There has been no significant change since the prior study. BI/SCRN MAMM (CAD)W/CECIL BILAT IMPRESSION: Stable bilateral screening mammogram. Yearly follow-up mammogram recommended. (A) ASSESSMENT CATEGORY: BIRADS Category 1: Negative. A letter regarding these results will be sent to the patient by the facility within 30 days. Approximately 10% of breast cancers are not detected by mammography. A normal mammogram should not delay biopsy of a clinically suspicious abnormality. [id number] Electronically Signed: Jeronimo Miller MD at 13:47 EDT ,
== END | disposition home or self-care (01) ==
LOC: OPBI 12:28
PROVIDERS: PCP Preventive Medicine Occupational Medicine; Referring Provider Preventive Medicine Occupational Medicine; Visit Provider Preventive Medicine Occupational Medicine
DX: Z12.31 Encounter for screening mammogram for malignant neoplasm of breast (principal)
CPT/HCPCS: 77063; 77067